=== PATIENT | female | born 1945 | race Asian ===

== ENCOUNTER → 2017-08-26 | Outpatient (CLI) | payer OTHER ==
[~2017-08-26] MED LIST: AMLODIPINE BESYL5 MG PO; ASPIR 8181 M1 PO; ATIVAN0.5 MG PO; DESYREL50 MG PO; LISINOPRIL10 MG PO
== END ==
LOC: RAD 10:26
DX: Z12.31 Encounter for screening mammogram for malignant neoplasm of breast (principal)

== ENCOUNTER → 2017-12-24 | Outpatient (CLI) | payer OTHER ==
[~2017-12-24] MED LIST changes: +ANTIVERT25 MG PO; +CALCIUM ACETAT667 MG PO; -DESYREL50 MG PO; +FIBER SELECT G1 EACH PO; +LISINOPRIL20 MG PO; +OXYBUTYNIN 5 MG5 M2 PO; +TRAZODONE HCL50 MG PO; +VITAMINC500 PO
--- NOTE | ~2017-12-24 | 2DMMODE ---
[facility] [place] [address] 2 D/M-MODE ECHOCARDIOGRAM Name: SUDHALINDSEY Paul Room #: REG [facility]#: [id number] Admission: 12/24/17 Attend Phys: Michael Lance MD Discharge: Date of : 45 Date of Service: 12/24/17 0948 Report #: [id number] THIS REPORT FOR: //name// APPROVED REPORT Study performed: 12/24/2017 08:08:40 EXAM: Comprehensive 2D, Doppler, and color-flow Echocardiogram Patient Location: Out-Patient Status: routine BSA: 1.31 HR: 70 bpm BP: 150/87 mmHg Rhythm: NSR Other Information Study Quality: Good Indications Chest pain. 2D Dimensions RVDd: 26.58 mm LVEF(%): 64.43 (>50%) IVSd: 8.55 (7-11mm) LVOT Diam: 19.21 (18-24mm) LVDd: 38.00 mm PWd: 7.55 (7-11mm) LVDs: 24.87 (25-40mm) Aortic Root: 32.53 mm Willard's LVEF: 64.43 % Volumes Left Atrial Volume (Systole) Single Plane 4CH: 19.92 mL Single Plane 2CH: 29.78 mL LA ESV Index: 21.00 mL/m2 Aortic Valve AoV Peak Dipak.: 1.34 m/s AO Peak Gr.: 7.23 mmHg LVOT Max P.12 mmHg LVOT Max V: 1.13 m/s YANNICK Vmax: 2.44 cm2 Mitral Valve E/A Ratio: 0.8 MV Decel. Time: 218.59 ms [facility] [address] [place] [address] 2 D/M-MODE ECHOCARDIOGRAM Name: LINDSEY HALEY Room #: [facility]#: [id number] Admission: 12/24/17 Attend Phys: Michael Lance MD Discharge: Date of : 45 Date of Service: 12/24/17 0948 Report #: [id number] MV E Max Dipak.: 0.75 m/s MV A Dipak.: 1.00 m/s MV PHT: 63.39 ms IVRT: 73.82 ms Pulmonary Valve PV Peak Dipak.: 0.88 m/s PV Peak Gr.: 3.09 mmHg Pulmonary Vein P Vein S: 0.55 m/s P Vein D: 0.38 m/s P Vein S/D Ratio: 1.45 Tricuspid Valve RAP Estimate: 5.00 mmHg Left Ventricle The left ventricle is normal size. There is normal LV segmental wall motion. There is normal left ventricular wall thickness. Left ventricular systolic function is normal. LVEF is 60%. Mild diastolic dysfunction is present (impaired relaxation pattern). Right Ventricle The right ventricle is normal size. The right ventricular systolic function is normal. Atria The left atrium size is normal. The right atrium size is normal. Aortic Valve The aortic valve is normal in structure. No aortic regurgitation is present. There is no aortic valvular stenosis. Mitral Valve The mitral valve is normal in structure. Trace mitral regurgitation. No evidence of mitral valve stenosis. Tricuspid Valve The tricuspid valve is normal in structure. Trivial tricuspid regurgitation. Unable to assess PA pressure. Pulmonic Valve The pulmonary valve is normal in structure. Trace pulmonic regurgitation. [facility] [place] [address] 2 D/M-MODE ECHOCARDIOGRAM Name: SUDHALINDSEY Room #: REG [facility]#: [id number] Admission: 12/24/17 Attend Phys: Michael Lance MD Discharge: Date of : 45 Date of Service: 12/24/17 0948 Report #: [id number] Great Vessels The aortic root is normal in size. IVC is normal in size and collapses >50% with inspiration. Pericardium There is no pericardial effusion. <Conclusion> The left ventricle is normal size. There is normal left ventricular wall thickness. Left ventricular systolic function is normal. Mild diastolic dysfunction is present (impaired relaxation pattern). The right ventricle is normal size. The left atrium size is normal. There is no aortic valvular stenosis. Trace mitral regurgitation. Trivial tricuspid regurgitation. <ELECTRONICALLY SIGNED> By: Michael Lance MD 12/24/17947 7 7 Michael Lance MD /INF
== END ==
LOC: CV 06:38
DX: I50.30 Unspecified diastolic (congestive) heart failure (principal)

== ENCOUNTER → 2017-12-25 | Outpatient (CLI) | payer OTHER | LOC: NUC 06:50 | DX: R07.9 Chest pain, unspecified (principal); R53.83 Other fatigue ==

== ENCOUNTER → 2018-02-13 | Outpatient (CLI) | payer OTHER ==
[~2018-02-13] MED LIST changes: -ANTIVERT25 MG PO; -CALCIUM ACETAT667 MG PO; +DESYREL50 MG PO; -FIBER SELECT G1 EACH PO; -LISINOPRIL20 MG PO; -OXYBUTYNIN 5 MG5 M2 PO; -TRAZODONE HCL50 MG PO; -VITAMINC500 PO
[2018-02-13 13:30] LABS: CREATININE 0.6 mg/dL (0.6-1.0)
== END ==
LOC: LAB 12:21
PROVIDERS: Nurse Practitioner
DX: K42.9 Umbilical hernia without obstruction or gangrene (principal)

== ENCOUNTER → 2018-05-27 | Outpatient (CLI) | payer OTHER ==
[~2018-05-27] VITALS: Ht 147.3 cm; Wt 40.8 kg
[~2018-05-27] MED LIST changes: +ANTIVERT25 MG PO; +CALCIUM ACETAT667 MG PO; -DESYREL50 MG PO; +FIBER SELECT G1 EACH PO; +LISINOPRIL20 MG PO; +OXYBUTYNIN 5 MG5 M2 PO; +TRAZODONE HCL50 MG PO; +VITAMINC500 PO
--- NOTE | ~2018-05-27 | P ---
[facility] [place] [address] PROCEDURE REPORT Name: LINDSEY HALEY [facility] [id number] Admission: 05/27/18 Attend Phys: Matthew Diamond Discharge: Date of : 45 Report #: [id number] THIS REPORT FOR: //name// CC: Matthew Lin DO DATE OF SERVICE: 05/27/2018 PROCEDURE PERFORMED: Colonoscopy. HISTORY OF PRESENT ILLNESS: The patient is a 72-year-old female with change in bowel habits, constipation, lower abdominal pain, weight loss and decreased appetite. EGD was just performed by myself, which was normal. Plan is for colonoscopy. DESCRIPTION OF PROCEDURE: The risks and benefits of the procedure were explained to the patient and those risks including but not limited to bleeding, perforation, the risk of sedation. She understood these risks and gave informed consent. Sedation was given using propofol per anesthesia. Next, a digital rectal exam was initially performed, which was normal. Next, using a standard Olympus colonoscope, the scope was placed in the patient's anus and advanced under direct vision to the cecum. The overall prep was excellent. The cecum and ileocecal valve were normal in appearance. Ascending, transverse, descending and sigmoid colon were all normal. The rectal mucosa was normal. On retroflexion, small internal hemorrhoids noted. Scope was then withdrawn and the procedure terminated. The patient tolerated the procedure well. IMPRESSION: 1. Small internal hemorrhoids. 2. Otherwise, normal colonoscopy. RECOMMENDATIONS: Etiology of abdominal pain may be secondary to constipation. Colonoscopy was normal. CT scan in February showed a large amount of stool. The patient does report improvement in her pain after a bowel movement. Therefore, recommend at this time starting a regimen of daily MiraLax and titrating as needed. Also of note, the patient had been more depressed noted by family members, which may be playing a role with her decreased appetite and weight loss. Upper endoscopy was essentially negative. Thank you for allowing me to participate in her care. By: [id number] Matthew Paz MD /nt
--- NOTE | ~2018-05-27 | P ---
[facility] [place] [address] PROCEDURE REPORT Name: LINDSEY HALEY Room #: REG [facility]#: [id number] Admission: 05/27/18 Attend Phys: Matthew Diamond Discharge: Date of : 45 Report #: [id number] THIS REPORT FOR: //name// CC: Matthew Lin DO DATE OF SERVICE: 05/27/2018 PROCEDURE PERFORMED: Upper endoscopy with biopsies. HISTORY OF PRESENT ILLNESS: The patient is a 72-year-old female with intermittent low abdominal pain and constipation. CT scan of the abdomen and pelvis in February of this year showed large amount of stool in the colon but essentially normal. She has also had weight loss and decreased appetite. Plan is for EGD and colonoscopy. DESCRIPTION OF PROCEDURE: The risks and benefits of the procedure were explained to the patient and those risks including but not limited to bleeding, perforation and the risk of sedation and she understood these risks and gave informed consent. Sedation was given using propofol per anesthesia. Next, using a standard Olympus upper endoscope, the scope was placed in the patient's mouth and advanced under direct vision through the esophagus, stomach and into the second portion of the duodenum. The larynx was normal in appearance. The esophagus was normal throughout. The GE junction was normal. Overall, the gastric mucosa was normal. Because of the patient's symptoms, biopsies were obtained to rule out H. pylori. The pylorus was normal and patent. The duodenal bulb, first and second portion were all normal. The scope was then withdrawn and the procedure terminated. The patient tolerated the procedure well. IMPRESSION: Normal upper endoscopy. RECOMMENDATIONS: 1. Await biopsy results. 2. We will proceed with colonoscopy next today. Thank you for allowing me to participate in her care. By: [id number] Matthew Paz MD /nt
== END | disposition home or self-care (01) ==
LOC: GI 08:26
DX: K64.8 Other hemorrhoids (principal); R19.4 Change in bowel habit; I10 Essential (primary) hypertension; Z98.890 Other specified postprocedural states; M19.90 Unspecified osteoarthritis, unspecified site; Z90.710 Acquired absence of both cervix and uterus
CPT/HCPCS: 62110; 62900

== ENCOUNTER → 2018-12-24 | Outpatient (CLI) | payer OTHER | LOC: RAD 11:56 | DX: Z12.31 Encounter for screening mammogram for malignant neoplasm of breast (principal) ==

== ENCOUNTER → 2021-02-22 | Outpatient (CLI) | payer OTHER | LOC: CAT 09:20 | PROVIDERS: ATTEND Family Medicine | DX: Z13.6 Encounter for screening for cardiovascular disorders (principal); I25.10 Atherosclerotic heart disease of native coronary artery without angina pectoris; E78.00 Pure hypercholesterolemia, unspecified ==

== ENCOUNTER → 2021-02-22 | Outpatient (CLI) | payer OTHER | LOC: BC 09:11 → RAD 09:13 → BC 13:34 | PROVIDERS: ATTEND Family Medicine | DX: Z12.31 Encounter for screening mammogram for malignant neoplasm of breast (principal) ==

== ENCOUNTER → 2021-03-02 | Outpatient (CLI) | payer OTHER | LOC: BC 08:18 | PROVIDERS: ATTEND Family Medicine | DX: R92.2 Inconclusive mammogram (principal) ==